=== PATIENT | female | born 1970 | race Caucasian/White ===

== ENCOUNTER 2020-08-20 14:50 | Emergency (ER) | payer OTHER ==
[~2020-08-20] VITALS: Ht 157.5 cm; Wt 63.0 kg
[2020-08-20 15:42] LABS: ABSOLUTE NEUTROPHILS 1.5 thou/uL (1.4-8.2); BASOPHILS 0.9 % (0.0-2.0); EOSINOPHILS 1.2 % (0.0-3.0); HEMATOCRIT 35.3 % (37.0-47.0); LYMPHOCYTES 31.8 % (24.0-44.0); MCH 31.1 pg (26.0-34.0); MCHC 33.9 g/dL (28.0-37.0); MCV 91.5 fL (80.0-100.0); MONOCYTES 16.4 % (1.0-8.0); PLATELET COUNT 313 thou/uL (150-400); POLYS 49.7 % (36.0-66.0); RBC 3.85 mil/uL (4.20-5.00); RDW 13.5 % (10.5-14.5); WBC 3.1 thou/uL (4.0-11.0)
[2020-08-20 15:50] LABS: CALCIUM 9.2 mg/dL (8.5-10.1); CREATININE 0.7 mg/dL (0.6-1.0); POTASSIUM 4.3 mmol/L (3.5-5.1)
[2020-08-20 16:00] LABS: ALBUMIN 3.4 g/dL (3.4-5.0); TOTAL BILIRUBIN 0.2 mg/dL (0.2-1.0); TOTAL PROTEIN 7.4 g/dL (6.4-8.2)
[2020-08-20 20:52] VITALS: BP 130/88
== END 2020-08-20 20:52 ==
LOC: ER 14:50
PROVIDERS: Nurse Practitioner
DX: U07.1 COVID-19 (principal); F20.9 Schizophrenia, unspecified; F41.9 Anxiety disorder, unspecified

== ENCOUNTER 2020-10-11 16:46 | Emergency (ER) | payer OTHER ==
[~2020-10-11] VITALS: Ht 167.6 cm; Wt 59.0 kg
[2020-10-11 17:38] LABS: URINE BILIRUBIN NEGATIVE (Negative); URINE BLOOD NEGATIVE (Negative); URINE CLARITY CLEAR; URINE COLOR YELLOW; URINE GLUCOSE-RANDOM* NEGATIVE (Negative); URINE KETONES NEGATIVE (Negative); URINE LEUKOCYTES-REFLEX TRACE (Negative); URINE NITRITE-REFLEX NEGATIVE (Negative); URINE PROTEIN (DIPSTICK) NEGATIVE (Negative); URINE SPECIFIC GRAVITY 1.015 (1.005-1.035); URINE UROBILINOGEN 0.2 E.U./dl (0.2-1.0)
[2020-10-11 17:43] LABS: ABSOLUTE NEUTROPHILS 2.3 thou/uL (1.4-8.2); BASOPHILS 0.9 % (0.0-2.0); EOSINOPHILS 2.5 % (0.0-3.0); HEMATOCRIT 38.7 % (37.0-47.0); HEMOGLOBIN 12.8 gm/dL (12.0-15.0); LYMPHOCYTES 33.9 % (24.0-44.0); MCH 30.4 pg (26.0-34.0); MCHC 33.1 g/dL (28.0-37.0); MCV 91.7 fL (80.0-100.0); MONOCYTES 12.2 % (1.0-8.0); PLATELET COUNT 352 thou/uL (150-400); POLYS 50.5 % (36.0-66.0); RBC 4.22 mil/uL (4.20-5.00); RDW 13.7 % (10.5-14.5); WBC 4.6 thou/uL (4.0-11.0)
[2020-10-11 17:46] LABS: AMP/METHAMP Negative (Negative); BARBITURATES Negative (Negative); BENZODIAZEPINES Negative (Negative); COCAINE Negative (Negative); METHADONE Negative (Negative); OPIATES Negative (Negative); PCP Negative (Negative)
[2020-10-11 17:50] LABS: CALCIUM 9.1 mg/dL (8.5-10.1); CREATININE 0.8 mg/dL (0.6-1.0); POTASSIUM 4.1 mmol/L (3.5-5.1)
[2020-10-11 17:56] LABS: ALBUMIN 3.5 g/dL (3.4-5.0); SALICYLATE 4.1 mg/dL (2.8-20.0); TOTAL BILIRUBIN 0.2 mg/dL (0.2-1.0); TOTAL PROTEIN 7.5 g/dL (6.4-8.2)
[2020-10-11 20:39] VITALS: BP 134/76
--- NOTE | 2020-10-12 07:12 | EKG ---
[place] [address] [facility] [place] [address] ELECTROCARDIOGRAM REPORT Name: HEATHER MORGAN [facility] [id number] Admission: 10/11/20 Attend Phys: Discharge: 10/11/20 Date of : 72 Report #: [id number] [facility] ED Test Date: 2020-10-11 Test Time: 17:43:14 Pat Name: HEATHER MORGAN Department: Room: Gender: F Exercise Physiologist Certified: YVROSE [place] : 1970 Requested By: Micah Scott Order Number: [id number] MD: Elian Gustafson Measurements Intervals Dixon Rate: 82 P: 64 TX: 167 QRS: 4 QRSD: 101 T: -14 QT: 376 QTc: 439 Interpretive Statements Sinus rhythm Probable left atrial enlargement RSR' in V1 or V2, right VCD or RVH Borderline T abnormalities, inferior leads No previous ECG available for comparison Electronically Signed On 10-12-2020 7:12:26 ELECTRONIC SPECIALIST by Elian Gustafson [email or web address] <ELECTRONICALLY SIGNED> By: Elian Gustafson MD, [facility] 10/12/20 0712 D: [id number] Elian Gustafson MD, FACC /EPI
== END 2020-10-11 20:39 | disposition home or self-care (01) ==
LOC: ER 16:46
PROVIDERS: Emergency Medicine
DX: F91.3 Oppositional defiant disorder (principal); F20.9 Schizophrenia, unspecified; F41.9 Anxiety disorder, unspecified; Z91.018 Allergy to other foods; Z20.822 Contact with and (suspected) exposure to COVID-19

== ENCOUNTER 2020-11-08 19:05 | Emergency (ER) | payer OTHER ==
[~2020-11-08] VITALS: Ht 167.6 cm; Wt 63.5 kg
[2020-11-08 19:55] LABS: ABSOLUTE NEUTROPHILS 2.4 thou/uL (1.4-8.2); EOSINOPHILS 2.1 % (0.0-3.0); HEMATOCRIT 37.2 % (37.0-47.0); HEMOGLOBIN 12.8 gm/dL (12.0-15.0); LYMPHOCYTES 30.8 % (24.0-44.0); MCH 30.6 pg (26.0-34.0); MCHC 34.3 g/dL (28.0-37.0); MCV 89.1 fL (80.0-100.0); MONOCYTES 12.5 % (1.0-8.0); PLATELET COUNT 302 thou/uL (150-400); POLYS 53.6 % (36.0-66.0); RBC 4.18 mil/uL (4.20-5.00); RDW 13.5 % (10.5-14.5); WBC 4.5 thou/uL (4.0-11.0)
[2020-11-08 20:13] LABS: CALCIUM 8.9 mg/dL (8.5-10.1); CREATININE 0.9 mg/dL (0.6-1.0); POTASSIUM 4.3 mmol/L (3.5-5.1)
[2020-11-08 20:16] LABS: ALBUMIN 3.6 g/dL (3.4-5.0); SALICYLATE 3.1 mg/dL (2.8-20.0); TOTAL BILIRUBIN 0.3 mg/dL (0.2-1.0); TOTAL PROTEIN 7.6 g/dL (6.4-8.2)
[2020-11-08 20:32] LABS: URINE BILIRUBIN NEGATIVE (Negative); URINE BLOOD 3+ (Negative); URINE CLARITY CLEAR; URINE COLOR YELLOW; URINE GLUCOSE-RANDOM* NEGATIVE (Negative); URINE KETONES NEGATIVE (Negative); URINE LEUKOCYTES-REFLEX TRACE (Negative); URINE NITRITE-REFLEX NEGATIVE (Negative); URINE PROTEIN (DIPSTICK) NEGATIVE (Negative); URINE UROBILINOGEN 0.2 E.U./dl (0.2-1.0)
[2020-11-08 20:41] LABS: AMP/METHAMP Negative (Negative); BARBITURATES Negative (Negative); BENZODIAZEPINES Negative (Negative); COCAINE Negative (Negative); METHADONE Negative (Negative); OPIATES Negative (Negative); PCP Negative (Negative)
[2020-11-08 20:48] LABS: CASTS None Seen /LPF (None Seen); SQUAMOUS 0-3 Few /LPF (0-3)
[2020-11-08 20:49] LABS: BACTERIA-REFLEX 1-9 Few /HPF (None Seen); CRYSTALS None Seen /LPF (None Seen); URINE RBC 3-10 Few /HPF (0-2); URINE WBC-REFLEX 0-5 Rare /HPF (0-5)
[2020-11-09] MEDS ORDERED: ADVAIR 100-501 EACH INH (00:38)
[2020-11-09] MEDS ORDERED: ACETAMINOPHEN PO (00:38)
[2020-11-09] MEDS ORDERED: [UNRECOGNIZED DRUG - OTHER] TOP (00:39)
[2020-11-09] MEDS ORDERED: TRAZODONE HCL50 MG PO (00:40)
[2020-11-09] MEDS ORDERED: HALOPERIDOL 1 MG1 MG (00:40)
[2020-11-09] MEDS ORDERED: CLONAZEPAM 0.50.5 M1 PO (00:40)
[2020-11-09] MEDS ORDERED: DULCOLAX STOOL100 M1 PO (04:21)
[2020-11-09] MEDS ORDERED: BENZTROPINE MES1 MG PO (04:23)
[2020-11-09] MEDS ORDERED: DEPAKOTE ER500 M1 PO (04:25)
[2020-11-09] MEDS ORDERED: SEROQUEL200 MG PO (04:29)
[2020-11-09] MEDS ORDERED: VENTOLIN HFA 1818 GM INH (04:30)
[2020-11-09] MEDS ORDERED: HALOPERIDOL10 MG PO (04:30)
[2020-11-09] MEDS ORDERED: SILTUSSIN DM C118 ML PO (04:37)
[2020-11-09] MEDS ORDERED: MILK OF MA400 MG/5 M PO (04:38)
[2020-11-09 10:59] VITALS: BP 127/55
== END 2020-11-09 11:01 ==
LOC: ER 19:05
PROVIDERS: Physician Assistant
DX: R45.851 Suicidal ideations (principal); F31.9 Bipolar disorder, unspecified; F20.9 Schizophrenia, unspecified; F41.9 Anxiety disorder, unspecified; Z79.899 Other long term (current) drug therapy; Z91.018 Allergy to other foods; Z20.822 Contact with and (suspected) exposure to COVID-19

== ENCOUNTER 2020-12-06 18:30 | Emergency (ER) | payer OTHER ==
[~2020-12-06] VITALS: Ht 167.6 cm; Wt 63.5 kg
[~2020-12-06 18:30] MED LIST: ACETAMINOPHEN PO; ADVAIR 100-501 EACH INH; BENZTROPINE MES1 MG PO; CLONAZEPAM 0.50.5 M1 PO; DEPAKOTE ER500 M1 PO; DULCOLAX STOOL100 M1 PO; HALOPERIDOL 1 MG1 MG; HALOPERIDOL10 MG PO; MILK OF MA400 MG/5 M PO; SEROQUEL200 MG PO; SILTUSSIN DM C118 ML PO; TRAZODONE HCL50 MG PO; VENTOLIN HFA 1818 GM INH; [UNRECOGNIZED DRUG - OTHER] TOP
[2020-12-06 19:09] LABS: ABSOLUTE NEUTROPHILS 2.9 thou/uL (1.4-8.2); EOSINOPHILS 1.6 % (0.0-3.0); HEMOGLOBIN 12.5 gm/dL (12.0-15.0); LYMPHOCYTES 28.7 % (24.0-44.0); MCH 31.1 pg (26.0-34.0); MCHC 34.7 g/dL (28.0-37.0); MCV 89.6 fL (80.0-100.0); PLATELET COUNT 331 thou/uL (150-400); POLYS 55.7 % (36.0-66.0); RBC 4.02 mil/uL (4.20-5.00); RDW 13.6 % (10.5-14.5); WBC 5.3 thou/uL (4.0-11.0)
[2020-12-06 19:24] LABS: URINE BILIRUBIN NEGATIVE (Negative); URINE BLOOD NEGATIVE (Negative); URINE CLARITY CLEAR; URINE COLOR YELLOW; URINE GLUCOSE-RANDOM* NEGATIVE (Negative); URINE KETONES NEGATIVE (Negative); URINE NITRITE-REFLEX NEGATIVE (Negative); URINE PROTEIN (DIPSTICK) NEGATIVE (Negative); URINE SPECIFIC GRAVITY 1.015 (1.005-1.035)
[2020-12-06 19:26] LABS: ANION GAP 13 mmol/L (7-16); BUN 15 mg/dL (7-18); CALCIUM 9.1 mg/dL (8.5-10.1); CHLORIDE 100 mmol/L (98-107); CO2 24 mmol/L (21-32); GLUCOSE 191 mg/dL (74-106); POTASSIUM 3.8 mmol/L (3.5-5.1); SODIUM 137 mmol/L (136-145)
[2020-12-06 19:27] LABS: URINE LEUKOCYTES-REFLEX 1+ (Negative)
[2020-12-06 19:33] LABS: AMP/METHAMP Negative (Negative); BARBITURATES Negative (Negative); BENZODIAZEPINES Negative (Negative); COCAINE Negative (Negative); METHADONE Negative (Negative); OPIATES Negative (Negative); PCP Negative (Negative)
[2020-12-06 19:34] LABS: SQUAMOUS >10 Many /LPF (0-3); URINE WBC-REFLEX 0-5 Rare /HPF (0-5)
[2020-12-06 19:35] LABS: URINE RBC 0-2 Rare /HPF (0-2)
[2020-12-06 19:36] LABS: BACTERIA-REFLEX 1-9 Few /HPF (None Seen); CASTS None Seen /LPF (None Seen); CRYSTALS None Seen /LPF (None Seen)
[2020-12-06 19:36] LABS: SALICYLATE 2.7 mg/dL (2.8-20.0)
[2020-12-06 21:13] VITALS: BP 154/64
== END 2020-12-06 21:13 | disposition home or self-care (01) ==
LOC: ER 18:30
PROVIDERS: Nurse Practitioner
DX: F31.9 Bipolar disorder, unspecified (principal); Z20.822 Contact with and (suspected) exposure to COVID-19; R45.851 Suicidal ideations; F43.10 Post-traumatic stress disorder, unspecified; F41.9 Anxiety disorder, unspecified; F20.9 Schizophrenia, unspecified; Z88.8 Allergy status to other drugs, medicaments and biological substances; Z79.899 Other long term (current) drug therapy

== ENCOUNTER 2021-01-03 19:53 | Emergency (ER) | payer OTHER ==
[~2021-01-03] VITALS: Ht 167.6 cm; Wt 63.5 kg
[2021-01-03 20:33] LABS: ABSOLUTE NEUTROPHILS 2.6 thou/uL (1.4-8.2); BASOPHILS 1.1 % (0.0-2.0); EOSINOPHILS 2.5 % (0.0-3.0); HEMATOCRIT 34.2 % (37.0-47.0); HEMOGLOBIN 11.7 gm/dL (12.0-15.0); LYMPHOCYTES 28.2 % (24.0-44.0); MCH 30.7 pg (26.0-34.0); MCHC 34.1 g/dL (28.0-37.0); MCV 90.1 fL (80.0-100.0); MONOCYTES 13.2 % (1.0-8.0); PLATELET COUNT 406 thou/uL (150-400); WBC 4.7 thou/uL (4.0-11.0)
[2021-01-03 20:44] LABS: ANION GAP 10 mmol/L (7-16); BUN 15 mg/dL (7-18); CALCIUM 9.4 mg/dL (8.5-10.1); CHLORIDE 100 mmol/L (98-107); CO2 24 mmol/L (21-32); CREATININE 1.1 mg/dL (0.6-1.0); GLUCOSE 135 mg/dL (74-106); POTASSIUM 3.8 mmol/L (3.5-5.1); SODIUM 134 mmol/L (136-145)
[2021-01-03 20:49] LABS: ALBUMIN 3.4 g/dL (3.4-5.0); DIRECT BILIRUBIN < 0.1 mg/dL (<0.1-0.2); SALICYLATE < 2.8 mg/dL (2.8-20.0); SGOT 15 U/L (15-37); SGPT 25 U/L (14-59); TOTAL BILIRUBIN 0.2 mg/dL (0.2-1.0); TOTAL PROTEIN 7.3 g/dL (6.4-8.2)
[2021-01-03 20:50] LABS: URINE BILIRUBIN NEGATIVE (Negative); URINE BLOOD NEGATIVE (Negative); URINE CLARITY CLEAR; URINE COLOR YELLOW; URINE GLUCOSE-RANDOM* NEGATIVE (Negative); URINE KETONES NEGATIVE (Negative); URINE LEUKOCYTES-REFLEX NEGATIVE (Negative); URINE NITRITE-REFLEX NEGATIVE (Negative); URINE PROTEIN (DIPSTICK) NEGATIVE (Negative); URINE SPECIFIC GRAVITY 1.015 (1.005-1.035); URINE UROBILINOGEN 0.2 E.U./dl (0.2-1.0)
[2021-01-03 21:02] LABS: AMP/METHAMP Negative (Negative); BARBITURATES Negative (Negative); BENZODIAZEPINES Negative (Negative); COCAINE Negative (Negative); METHADONE Negative (Negative); OPIATES Negative (Negative); PCP Negative (Negative)
[2021-01-04 01:34] VITALS: BP 134/61
== END 2021-01-04 01:45 | disposition still patient (30) ==
LOC: ER 19:53
PROVIDERS: Nurse Practitioner
DX: R45.851 Suicidal ideations (principal); R44.3 Hallucinations, unspecified; F41.9 Anxiety disorder, unspecified; Z91.018 Allergy to other foods

== ENCOUNTER 2021-02-07 20:26 | Emergency (ER) | payer OTHER ==
[~2021-02-07] VITALS: Ht 160 cm; Wt 68.0 kg
[2021-02-07 20:41] VITALS: BP 142/55
== END 2021-02-07 23:00 | disposition home or self-care (01) ==
LOC: ER 20:26
DX: F31.9 Bipolar disorder, unspecified (principal); F41.9 Anxiety disorder, unspecified; Z91.018 Allergy to other foods

== ENCOUNTER 2021-02-27 13:16 | Emergency (ER) | payer OTHER ==
[~2021-02-27] VITALS: Ht 170.2 cm; Wt 63.5 kg
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
[2021-02-27 14:23] LABS: URINE BILIRUBIN NEGATIVE (Negative); URINE BLOOD NEGATIVE (Negative); URINE CLARITY CLEAR; URINE COLOR YELLOW; URINE GLUCOSE-RANDOM* NEGATIVE (Negative); URINE KETONES NEGATIVE (Negative); URINE NITRITE-REFLEX NEGATIVE (Negative); URINE PROTEIN (DIPSTICK) NEGATIVE (Negative); URINE SPECIFIC GRAVITY 1.015 (1.005-1.035); URINE UROBILINOGEN 0.2 E.U./dl (0.2-1.0)
[2021-02-27 14:25] LABS: URINE LEUKOCYTES-REFLEX 1+ (Negative)
[2021-02-27 14:31] LABS: ABSOLUTE NEUTROPHILS 2.5 thou/uL (1.4-8.2); EOSINOPHILS 1.4 % (0.0-3.0); HEMATOCRIT 36.9 % (37.0-47.0); HEMOGLOBIN 12.5 gm/dL (12.0-15.0); MCH 30.2 pg (26.0-34.0); MCHC 33.8 g/dL (28.0-37.0); MCV 89.3 fL (80.0-100.0); MONOCYTES 13.4 % (1.0-8.0); PLATELET COUNT 357 thou/uL (150-400); POLYS 55.2 % (36.0-66.0); RBC 4.13 mil/uL (4.20-5.00); WBC 4.6 thou/uL (4.0-11.0)
[2021-02-27 14:32] LABS: AMP/METHAMP Negative (Negative); BARBITURATES Negative (Negative); BENZODIAZEPINES Negative (Negative); COCAINE Negative (Negative); METHADONE Negative (Negative); OPIATES Negative (Negative); PCP Negative (Negative)
[2021-02-27 14:35] LABS: ANION GAP 11 mmol/L (7-16); BUN 10 mg/dL (7-18); CALCIUM 8.9 mg/dL (8.5-10.1); CHLORIDE 101 mmol/L (98-107); CO2 25 mmol/L (21-32); CREATININE 0.7 mg/dL (0.6-1.0); GLUCOSE 164 mg/dL (74-106); SODIUM 137 mmol/L (136-145)
[2021-02-27 14:36] LABS: SQUAMOUS 4-10 Moderate /LPF (0-3)
[2021-02-27 14:37] LABS: URINE RBC None Seen /HPF (NONE SEEN); URINE WBC-REFLEX 6-15 Few /HPF (0-5)
[2021-02-27 14:38] LABS: BACTERIA-REFLEX 1-9 Few /HPF (None Seen)
[2021-02-27 14:41] LABS: ALBUMIN 3.5 g/dL (3.4-5.0); SALICYLATE 3.2 mg/dL (2.8-20.0); SGOT 17 U/L (15-37); SGPT 24 U/L (14-59); TOTAL BILIRUBIN 0.2 mg/dL (0.2-1.0); TOTAL PROTEIN 7.5 g/dL (6.4-8.2)
[2021-02-28] MEDS ORDERED: FENOFIBRATE145 M1 PO (09:49)
[2021-02-28] MEDS ORDERED: LEXAPRO 10 MG T10 M2 PO (09:52)
[2021-02-28] MEDS ORDERED: LEVOTHYROXINE50 MCG PO (09:53)
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
[2021-03-01 07:37] VITALS: BP 128/61
== END 2021-03-01 12:43 | disposition home or self-care (01) ==
LOC: ER 13:16
PROVIDERS: Physician Assistant
DX: F91.9 Conduct disorder, unspecified (principal); Z20.822 Contact with and (suspected) exposure to COVID-19; F31.9 Bipolar disorder, unspecified; F41.9 Anxiety disorder, unspecified; F20.9 Schizophrenia, unspecified; Z91.018 Allergy to other foods; Z79.899 Other long term (current) drug therapy

== ENCOUNTER 2021-04-16 20:52 | Emergency (ER) | payer OTHER ==
[~2021-04-16] VITALS: Ht 167.6 cm; Wt 63.0 kg
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
[~2021-04-16 20:52] MED LIST changes: +FENOFIBRATE145 M1 PO; +LEVOTHYROXINE50 MCG PO; +LEXAPRO 10 MG T10 M2 PO
[2021-04-16 22:42] VITALS: BP 128/74
== END 2021-04-16 22:45 | disposition home or self-care (01) ==
LOC: ER 20:52
DX: F41.9 Anxiety disorder, unspecified (principal); F31.9 Bipolar disorder, unspecified; F20.9 Schizophrenia, unspecified; Z79.51 Long term (current) use of inhaled steroids; Z79.899 Other long term (current) drug therapy; Z79.1 Long term (current) use of non-steroidal anti-inflammatories (NSAID); Z88.8 Allergy status to other drugs, medicaments and biological substances